=== PATIENT | female | born 1980 | race Caucasian/White ===

== ENCOUNTER → 2020-03-16 | Outpatient (CLI) | payer OTHER ==
[~2020-03-16] MED LIST: ASPIRIN CHEWABL81 M1 PO; ATARAX,VISTARIL50 MG PO; CIPROFLOXACIN500 MG PO; CLINDAMYCIN HC300 MG PO; HYDR25T PO; HYDROXYZINE PAM50 MG PO; JUNEL 1/20 20 M1 TAB PO; K-DUR 2020 MEQ PO; LABETALOL HCL100 MG PO; LIBRIUM10 MG PO; LOPRESSOR25 MG PO; NICODERM C14 MG/241 T; ONDANSETRON HYDR4 M1 PO; ONDANSETRON4 MG PO; PRENATAL1 TA6 PO; SINEMET 25-100M1 TAB PO; SUBOXONE 8 MG-1 EACH SL; SUBUTEX8 M1 PO; TOPROL XL25 MG PO; ZOFRAN4 MG PO; ZOLOFT100 MG PO; Zofran4 MG PO
== END | disposition home or self-care (01) ==
LOC: COVID19 14:57
PROVIDERS: ATTEND Internal Medicine
DX: Z20.828 Contact with and (suspected) exposure to other viral communicable diseases (principal)

== ENCOUNTER 2021-08-31 15:03 | Emergency (ER) | payer OTHER ==
[~2021-08-31] VITALS: Ht 170.1 cm; Wt 54.4 kg
== END 2021-08-31 20:05 | disposition left against medical advice (07) ==
LOC: ED 15:03
DX: M25.552 Pain in left hip (principal); Z88.1 Allergy status to other antibiotic agents; Z79.899 Other long term (current) drug therapy